=== PATIENT | male | born 1940 | race Caucasian/White ===

== ENCOUNTER 2022-05-26 12:48 | Outpatient (CLI) | payer MEDICARE, OTHER ==
--- NOTE | 2022-05-26 13:57 | Ultrasound Report ---
PROCEDURE: Retroperitoneal INDICATIONS: LEFT KIDNEY MASS TECHNIQUE: Real-time scanning was performed of the retroperitoneal organs, with image documentation. COMPARISON: Retroperitoneal ultrasound 11/15/2021 FINDINGS: Kidneys: Kidneys demonstrate mild atrophy. Right kidney measures 9.3 cm long; left kidney measures 9 .8 cm long. Right renal cortical thickness is 1.2 cm; left renal cortical thickness is 1.3 cm. No h ydronephrosis, or nephrolithiasis. There is a focus of decreased echogenicity within the superior rig ht renal pole consistent with simple cyst. A more complex focus of echogenicity is noted in the infer ior renal pole with internal calcification. It measures 2.2 x 1.4 x 1.9 cm compared to 2.1 x 1.3 x 1. 6 cm. Bladder: Pre-void bladder volume is 43 mL. Post-void residual is 38 mL. Pre-void images demonstrat e no intraluminal masses or stones. On pre-void images, bilateral ureteral jets are noted with color Doppler interrogation. (Of note, ureteral jets may not be detectable in up to 25% of cases due to i nsufficient differences in specific gravity between ureteral and bladder urine). Miscellaneous: No free abdominal fluid. IMPRESSION: Slight interval growth of heterogeneous echogenicity within the left kidney. Slow-growing renal cell malignancy cannot be excluded. As clinically indicated, further evaluation with CT/MRI with renal pro tocol may be obtained. Reviewed by: Arabella Ortega MD on 05/26/2022 1:56 PM PST Approved by: Arabella Ortega MD on 05/26/2022 1:56 PM PST Station ID: [id number]
== END 2022-05-26 12:49 | disposition home or self-care (01) ==
LOC: DI 12:48
PROVIDERS: ATTEND Internal Medicine Nephrology
DX: N28.89 Other specified disorders of kidney and ureter (principal); R93.89 Abnormal findings on diagnostic imaging of other specified body structures